=== PATIENT | male | born 1990 | race Two or more races ===

== ENCOUNTER 2024-03-12 14:06 | Emergency (ER) | payer MEDICAID, OTHER ==
[~2024-03-12] VITALS: Ht 185.4 cm; Wt 147.7 kg
[2024-03-12] MEDS ORDERED: AMOX500C2 PO (14:39)
[2024-03-12 15:48] VITALS: BP 154/93; PULSE 98; RESP 16; TEMP 99; O2SAT 99
== END 2024-03-12 16:00 | disposition home or self-care (01) ==
LOC: ER 14:06
DX: J40 Bronchitis, not specified as acute or chronic (principal); F17.210 Nicotine dependence, cigarettes, uncomplicated; R42 Dizziness and giddiness; F12.10 Cannabis abuse, uncomplicated
CPT/HCPCS: 36415; 71045; 85379